=== PATIENT | female | born 1995 | race Caucasian/White ===

== ENCOUNTER 2024-08-15 15:20 | Outpatient (CLI) | payer SELFPAY ==
--- NOTE | ~2024-08-15 | XR_ITS ---
[id number] Ordering provider: Luigi Vivar History: . Mass posterior neck . Comparison: None. FINDINGS: VERTEBRAL BODIES: Normal height and alignment. No visible fracture or subluxation. The dens is intact . DISK SPACES: Well maintained. PARASPINOUS SOFT TISSUES: No prevertebral soft tissue swelling. Soft tissue swelling is seen opposite the lower cervical area is seen posteriorly which may be a lipoma. Further evaluation and clinical c orrelation advised. IMPRESSION: No acute osseous abnormality cervical spine. Soft tissue swelling in the lower neck posteriorly most likely a lipoma. Further evaluation advised. Reviewed, dictated and finalized at location A. OR CARE PROVIDER IMPRESSION: No acute osseous abnormality cervical spine. Soft tissue swelling in the lower neck posteriorly most likely a lipoma. Furthe r evaluation advised.
== END 2024-08-15 15:21 | disposition home or self-care (01) ==
DX: R22.1 Localized swelling, mass and lump, neck (principal)
CPT/HCPCS: 72040

== ENCOUNTER 2024-08-18 11:31 | Outpatient (CLI) | payer SELFPAY ==
--- NOTE | ~2024-08-18 | US_ITS ---
EXAMINATION: US soft tissue head and neck DATE: 08/18/2024 11:52 INDICATION: Posterior neck mass. TECHNIQUE: Multiple grayscale and Doppler ultrasound images of the posterior neck were obtained. COMPARISON: Cervical spine radiographs 08/15/2024 FINDINGS: In the posterior neck, there is a 7.4 x 2.8 x 8.1 cm subcutaneous mass with similar echogen icity and echotexture to normal subcutaneous fat, consistent with a lipoma. IMPRESSION: 1. Subcutaneous lipoma in the posterior neck. Reviewed, dictated and finalized at location A. [employer]
== END 2024-08-18 11:32 | disposition home or self-care (01) ==
DX: D17.0 Benign lipomatous neoplasm of skin and subcutaneous tissue of head, face and neck (principal)
CPT/HCPCS: 76536